=== PATIENT | female | born 1965 | race American Indian/Alaskan Native ===

== ENCOUNTER 2017-06-14 08:20 | Emergency (ER) | payer OTHER ==
[2017-06-14] MEDS ORDERED: MOTRIN PO ONE (11:03)
[2017-06-14] MEDS ORDERED: GUAIFENESIN DM SYRUP PO ONE (11:03)
[2017-06-14 11:28] LABS: Bacteria,Urine 1+ /HPF (Negative); Bilirubin,Urine NEG (Negative); Blood,Urine NEG (Negative); Ketones,Urine NEG (Negative); Leukocyte Esterase,Urine SM (Negative); Mucus,Urine 3+ /HPF; Nitrite,Urine NEG (Negative); Protein,Urine <15 mg/dL mg/dL (Negative)
--- NOTE | 2017-06-14 11:33 | XRay Report ---
CHEST 2 VIEWS INDICATION: Worsening cough with fever. COMPARISON: None similar at this institution. FINDINGS: PA and lateral chest radiographs demonstrate normal cardiomediastinal silhouette. Clear lungs. Mid thoracic spine degenerative changes. CONCLUSION: No acute disease in the chest. Thank you for the opportunity to participate in this patient's care.
--- NOTE | 2017-06-14 11:50 | Emergency Department Report ---
- General Chief Complaint: Upper Respiratory Infection Stated Complaint: FLU LIKE SYMPTOMS Time Seen by Provider: 06/14/17 10:08 Source: patient Mode of arrival: Ambulatory Limitations: No Limitations - History of Present Illness Initial Comments: 52-year-old female past medical history none presents with complaint of runny nose body aches mild cough and slight increased urinary frequency for 2 days. Patient states that she is slightly more tired than usual. Patient is awake alert and oriented 3 not in acute distress. Speaking in full sentences no wheezing no stridor noted. Patient states she took some Tylenol at home. Complaining of general malaise. MD Complaint: cough, rhinorrhea Onset/Timin -: days(s) Severity: moderate Associated Symptoms: fever, myalgias, cough - Related Data Previous Rx's Medication Instructions Recorded Last Taken Type Dextromethorphan Hb/Doxylamine 15 ml PO Q6H PRN #1 liquid 06/14/17 Unknown Rx [Safetussin Pm Liquid] Ibuprofen [Motrin] 800 mg PO Q8HR PRN #30 tablet 06/14/17 Unknown Rx Nitrofurantoin Monohyd/M-Cryst 100 mg PO BID #14 capsule 06/14/17 Unknown Rx [Macrobid 100 mg Capsule] Oseltamivir [Tamiflu] 75 mg PO BID #10 cap 06/14/17 Unknown Rx Allergies Allergy/AdvReac Type Severity Reaction Status Date / Time No Known Allergies Allergy Unverified 06/14/17 08:34 ED Review of Systems ROS: Stated complaint: FLU LIKE SYMPTOMS Other details as noted in HPI Constitutional: fever, malaise. denies: chills Eyes: denies: eye pain, eye discharge, vision change ENT: denies: ear pain, throat pain Respiratory: denies: cough, shortness of breath, wheezing Cardiovascular: denies: chest pain, palpitations Endocrine: no symptoms reported Gastrointestinal: denies: abdominal pain, nausea, diarrhea Genitourinary: denies: urgency, dysuria, discharge Musculoskeletal: denies: back pain, joint swelling, arthralgia Skin: denies: rash, lesions Neurological: denies: headache, weakness, paresthesias Psychiatric: denies: anxiety, depression Hematological/Lymphatic: denies: easy bleeding, easy bruising ED Past Medical Hx - Past Medical History Previous Medical History?: No - Surgical History Past Surgical History?: No - Social History Smoking Status: Never Smoker Substance Use Type: Alcohol, Prescribed - Medications Home Medications: Home Medications Medication Instructions Recorded Confirmed Last Taken Type Dextromethorphan Hb/Doxylamine 15 ml PO Q6H PRN #1 liquid 06/14/17 Unknown Rx [Safetussin Pm Liquid] Ibuprofen [Motrin] 800 mg PO Q8HR PRN #30 tablet 06/14/17 Unknown Rx Nitrofurantoin Monohyd/M-Cryst 100 mg PO BID #14 capsule 06/14/17 Unknown Rx [Macrobid 100 mg Capsule] Oseltamivir [Tamiflu] 75 mg PO BID #10 cap 06/14/17 Unknown Rx ED Physical Exam - General Limitations: No Limitations General appearance: alert, in no apparent distress - Head Head exam: Present: atraumatic, normocephalic - Eye Eye exam: Present: normal appearance, PERRL, EOMI - ENT ENT exam: Present: mucous membranes moist - Neck Neck exam: Present: normal inspection, full ROM - Respiratory Respiratory exam: Present: normal lung sounds bilaterally. Absent: respiratory distress - Cardiovascular Cardiovascular Exam: Present: regular rate, normal rhythm. Absent: systolic murmur, diastolic murmur, rubs, gallop - GI/Abdominal GI/Abdominal exam: Present: soft (abdomen soft nontender nondistended no flank pain bilaterally on percussion.), normal bowel sounds - Extremities Exam Extremities exam: Present: normal inspection - Back Exam Back exam: Present: normal inspection - Neurological Exam Neurological exam: Present: alert, oriented X3 - Psychiatric Psychiatric exam: Present: normal affect, normal mood - Skin Skin exam: Present: warm, dry, intact, normal color. Absent: rash ED Course Vital Signs 06/14/17 08:34 Temperature 98.9 F Pulse Rate 97 H Respiratory 20 Rate Blood Pressure 150/99 O2 Sat by Pulse 98 Oximetry ED Medical Decision Making - Medical Decision Making A/P: Influenza A positive, clinical UTI 1-patient elects to use Tamiflu. I informed her that it may or may not help her. Patient is within the therapeutic window O 48 hours of symptoms therefore I will give her a course of Tamiflu 2-Mucinex when necessary, Motrin when necessary 3-7 day course of Macrobid for UTI 4- follow up with primary doctor 5-vital signs stable for discharge Critical care attestation.: If time is entered above; I have spent that time in minutes in the direct care of this critically ill patient, excluding procedure time. ED Disposition Clinical Impression: Influenza A Urinary tract infection Qualifiers: Urinary tract infection type: acute cystitis Hematuria presence: without hematuria Qualified Code(s): N30.00 - Acute cystitis without hematuria Disposition: TO HOME OR SELFCARE Is pt being admited?: No Does the pt Need Aspirin: No Condition: Stable Instructions: Influenza (ED), Urinary Tract Infection in Women (ED) Prescriptions: Dextromethorphan Hb/Doxylamine [Safetussin Pm Liquid] 15 ml PO Q6H PRN #1 liquid PRN Reason: Cough Ibuprofen [Motrin] 800 mg PO Q8HR PRN #30 tablet PRN Reason: Fever Nitrofurantoin Monohyd/M-Cryst [Macrobid 100 mg Capsule] 100 mg PO BID #14 capsule Oseltamivir [Tamiflu] 75 mg PO BID #10 cap Referrals: [facility] [Outside] - 3-5 Days [facility] [Outside] - 3-5 Days Forms: Work/School Release Form(ED) Time of Disposition: 12:09
[2017-06-14 12:32] VITALS: BP 146/93
== END 2017-06-14 12:32 | disposition home or self-care (01) ==
LOC: ED 08:20
DX: J09.X2 Influenza due to identified novel influenza A virus with other respiratory manifestations (principal); N30.00 Acute cystitis without hematuria
CPT/HCPCS: 71020; 81001; 87086; 87400